=== PATIENT | female | born 1945 | race Caucasian/White ===

== ENCOUNTER 2024-03-31 12:35 | Emergency (ER) | payer MEDICARE | END 2024-03-31 14:21 | disposition home or self-care (01) | LOC: CSHERS 12:35 | DX: S63.509A Unspecified sprain of unspecified wrist, initial encounter (principal); S09.90XA Unspecified injury of head, initial encounter; S56.919A Strain of unspecified muscles, fascia and tendons at forearm level, unspecified arm, initial encounter; W19.XXXA Unspecified fall, initial encounter ==